=== PATIENT | male | born 1985 | race Caucasian/White ===

== ENCOUNTER 2017-02-25 00:47 | Emergency (ER) | payer OTHER ==
[~2017-02-25] VITALS: Ht 193 cm; Wt 90.7 kg
[2017-02-25 00:47] VITALS: BP_SYST 150
--- NOTE | 2017-02-25 00:47 | NUR ---
Patient to ER bed 1 to gown for evaluation. Side rails up. Report given to Nery AJ.
--- NOTE | 2017-02-25 00:50 | NUR ---
Patient BIB [facility] ambulance, patient is a patient of Davon Low. Received report from Antony [id number] patient was brought in for increased confusion and increased agitation after the patient drank half gallon of vodka. Patient also complains of lower back pain and left leg/foot pain x 2 days. Patient states pain 9/10. Patient currently compliant with plan of care. Davon Low councelor at bedside. No acute distress noted at this time.
--- NOTE | 2017-02-25 01:10 | NUR ---
# 18 gauge angiocath placed to LAC. Use of asceptic technique. Opsite placed over site. Blood return noted. Blood for lab drawn from site. Flushed with 10 cc of normal saline. No evidence of infiltration noted. Patient tolerated well.
--- NOTE | 2017-02-25 01:38 | NUR ---
ER MD Yin at bedside examining patient.
[2017-02-25 02:02] LABS: BASOPHILS % (AUTO) 0.2 % (0.0-2.0); EOSINOPHILS # (AUTO) 0.1 K/uL (0.0-0.4); EOSINOPHILS % (AUTO) 2.3 % (0.0-4.0); HEMATOCRIT 33.2 % (36-54); HEMOGLOBIN 10.5 g/dL (14.0-18.0); LYMPHOCYTES # (AUTO) 1.3 K/uL (1.0-5.5); LYMPHOCYTES % (AUTO) 24.7 % (20.5-51.5); MEAN CORPUSCULAR HEMOGLOBIN 25 pg (27-31); MEAN CORPUSCULAR HGB CONC 32 % (32-36); MEAN CORPUSCULAR VOLUME 80 fL (79.0-98.0); MONOCYTES # (AUTO) 0.8 K/uL (0.0-1.0); MONOCYTES % (AUTO) 14.2 % (1.7-9.3); NEUTROPHILS # (AUTO) 3.2 K/uL (1.8-7.7); NEUTROPHILS % (AUTO) 58.6 % (40.0-70.0); RED BLOOD CELL COUNT(AUTO) 4.14 MIL/uL (4.2-6.2); WHITE BLOOD COUNT (AUTO) 5.4 K/uL (4.8-10.8)
[2017-02-25 02:07] LABS: ANION GAP 9 (5-15); CALCIUM 10.2 mg/dL (8.4-11.0); CHLORIDE 101 mmol/L (98-107); CREATININE 0.91 mg/dL (0.55-1.30); GLUCOSE 80 mg/dL (70-99); POTASSIUM 4.4 mmol/L (3.5-5.1); SODIUM SERUM 135 mmol/L (136-145); UREA NITROGEN, BLOOD 10 mg/dL (8-21)
[2017-02-25 02:08] LABS: GFR AFRICAN AMERICAN 124 mL/min (>90)
[2017-02-25 02:09] LABS: PROTHROMBIN TIME 10.4 SECS (9.5-12.5)
[2017-02-25] MEDS ORDERED: NACL 0.9% 1,000 ML IV ONE (02:09)
[2017-02-25 02:11] LABS: ALANINE AMINOTRANSFERASE 109 U/L (12-78); ALBUMIN 3.9 g/dL (3.4-4.8); ASPARTATE AMINOTRANSFERASE 122 U/L (10-37); TOTAL BILIRUBIN 0.6 mg/dL (0.0-1.0)
[2017-02-25] MEDS ORDERED: ONDANSETRON HCL 4 MG/2 ML VIAL IVP ONE (02:15)
[2017-02-25 02:16] LABS: PLATELET COUNT (AUTO) 96 K/uL (130-430)
[2017-02-25 02:18] LABS: ALCOHOL, BLOOD < 3 mg/dL (<10)
--- NOTE | 2017-02-25 02:20 | NUR ---
Davon doniscelbeth at bedside. Patient reoriented to surroundings. No agitation noted at this time. Patient continues to be cooperative with plan of care.
[2017-02-25 02:36] LABS: BILIRUBIN,URINE NEGATIVE (NEGATIVE); BLOOD, URINE NEGATIVE (NEGATIVE); CLARITY/URINE CLEAR (CLEAR); COLOR,URINE YELLOW (YELLOW); GLUCOSE,URINE NEGATIVE (NEGATIVE); KETONES,URINE TRACE (NEGATIVE); LEUKOCYTE ESTERASE ,URINE NEGATIVE (NEGATIVE); NITRITE, URINE NEGATIVE (NEGATIVE); PH,URINE 7.5 (5.0-8.0); PROTEIN URINE TRACE (NEGATIVE)
[2017-02-25 02:44] LABS: BACTERIA,URINE FEW /HPF (None Seen); MUCUS,URINE 1+ /LPF (None Seen); RBC,URINE 0-3 /HPF (0-3)
[2017-02-25] MEDS ORDERED: MAG-AL HYDROX/SIMETH 30 ML UDC PO ONE (02:45)
[2017-02-25 02:48] LABS: BARBITURATE, URINE NEGATIVE (NEG <=200); METHAMPHETAMINES SCREEN,URINE NEGATIVE (NEG <=500); URINE AMPHETAMINE NEGATIVE (NEG <=500); URINE METHADONE NEGATIVE (NEG <=200)
[2017-02-25 02:49] LABS: BENZODIAZEPINE, URINE POSITIVE (NEG <=150); CANNABINOID, URINE NEGATIVE (NEG <=50); COCAINE, URINE NEGATIVE (NEG <=150); OPIATE, URINE NEGATIVE (NEG <=100); PHENCYCLIDINE SCREEN,URINE NEGATIVE (NEG <=25); UR TRICYCLIC ANTIDEPRESSANTS NEGATIVE (NEG <=300); URINE OXYCODONE SCREEN NEGATIVE (NEG <=100); URINE PROPOXYPHENE SCREEN NEGATIVE (NEG <=300)
--- NOTE | 2017-02-25 03:08 | NUR ---
IVF infusing with no s/s of infiltration at this time. Will cont to monitor.
--- NOTE | 2017-02-25 03:10 | NUR ---
No adverse reactions noted after medication administration. Will continue to monitor.
[2017-02-25] MEDS ORDERED: LORazepam 2 MG/ML VIAL (FOR ER USE) IVP ONE (03:15)
[2017-02-25] MEDS ORDERED: KETOROLAC TROMETHAMINE 30 MG VIAL IVP ONE (03:30)
--- NOTE | 2017-02-25 03:30 | NUR ---
Spoke with Christina AJ at [facility] and gave report.
[2017-02-25 04:07] VITALS: BP_SYST 142
--- NOTE | 2017-02-25 04:07 | NUR ---
Patient to be transfered to [facility] for continuity of care. Report called to Christina at receiving facility. [facility] ambulance service has been called for transfer. ETA is 15 minutes.
== END 2017-02-25 04:07 | disposition home or self-care (01) ==
LOC: SED 00:47
DX: F10.239 Alcohol dependence with withdrawal, unspecified (principal); R41.82 Altered mental status, unspecified; I10 Essential (primary) hypertension; Z88.6 Allergy status to analgesic agent; Y90.0 Blood alcohol level of less than 20 mg/100 ml
CPT/HCPCS: 36415; 80053; 80307; 81000; 82140; 85025; 85610; 96361; 96374; 96375; 99284; G0482; J1885; J2060; J2405; J7030

== ENCOUNTER 2017-10-20 23:08 | Inpatient (IN) | payer OTHER ==
[~2017-10-20] VITALS: Ht 193 cm; Wt 90.7 kg
[~2017-10-20 23:08] MED LIST: LORA-259 PO; METO-442 PO; PANT20TA2 PO; TRAM50TA92 PO
[2017-10-20 23:18] VITALS: BP_SYST 121
[2017-10-21] MEDS ORDERED: FOLIC ACID 1 MG, THIAMINE HCL 100 MG, MAGNESIUM SULFATE 1 GM, MVI 10 ML in NACL 0.9% 1,... IV ONE (01:00)
[2017-10-21] MEDS ORDERED: FOLIC ACID 5 MG/ML VIAL IV ONE (01:01)
[2017-10-21] MEDS ORDERED: THIAMINE HCL 100 MG/ML VIAL ONE (01:01)
[2017-10-21] MEDS ORDERED: MVI 10 ML VIAL IV ONE (01:01)
[2017-10-21] MEDS ORDERED: MAGNESIUM SULFATE 1 GM/2 ML VIAL ONE (01:01)
[2017-10-21 01:42] LABS: CREATININE 1.02 mg/dL (0.55-1.30); POTASSIUM 3.9 mmol/L (3.5-5.1)
[2017-10-21 01:43] LABS: BASOPHILS % (AUTO) 0.1 % (0.0-2.0); EOSINOPHILS % (AUTO) 0.1 % (0.0-4.0); HEMATOCRIT 43.8 % (36-54); HEMOGLOBIN 14.3 g/dL (14.0-18.0); LYMPHOCYTES # (AUTO) 1.6 K/uL (1.0-5.5); LYMPHOCYTES % (AUTO) 21.3 % (20.5-51.5); MEAN CORPUSCULAR HEMOGLOBIN 26 pg (27-31); MEAN CORPUSCULAR HGB CONC 33 % (32-36); MEAN CORPUSCULAR VOLUME 80 fL (79.0-98.0); MONOCYTES # (AUTO) 0.4 K/uL (0.0-1.0); MONOCYTES % (AUTO) 5.1 % (1.7-9.3); NEUTROPHILS # (AUTO) 5.7 K/uL (1.8-7.7); NEUTROPHILS % (AUTO) 73.4 % (40.0-70.0); PLATELET COUNT (AUTO) 190 K/uL (130-430); RED BLOOD CELL COUNT(AUTO) 5.45 MIL/uL (4.2-6.2); RED CELL DISTRIBUTION WIDTH 24.5 % (9.0-15.0); WHITE BLOOD COUNT (AUTO) 7.7 K/uL (4.8-10.8)
[2017-10-21 01:45] LABS: PROTHROMBIN TIME 10.3 SECS (9.5-12.5)
[2017-10-21 01:48] LABS: ALBUMIN 4.1 g/dL (3.4-4.8); TOTAL BILIRUBIN 0.7 mg/dL (0.0-1.0)
[2017-10-21] MEDS ORDERED: ONDANSETRON HCL 4 MG/2 ML VIAL IVP ONE (04:15)
[2017-10-21] MEDS ORDERED: KETOROLAC TROMETHAMINE 15 MG VIAL IVP ONE (05:00)
[2017-10-21] MEDS ORDERED: PROCHLORPERAZINE EDISYLATE 10 MG/2 ML VIAL IVP ONE (05:15)
[2017-10-21] MEDS ORDERED: DIPHENHYDRAMINE INJ 50 MG/ML VIAL IVP ONE (05:15)
[2017-10-21 05:54] VITALS: BP_SYST 125
[2017-10-21 07:58] VITALS: BP_SYST 125
[2017-10-21] MEDS: FOLIC ACID 1 MG, THIAMINE HCL 100 MG, MAGNESIUM SULFATE 1 GM, MVI 10 ML in NACL 0.9% 1,... IV SCH ×3 (10:36→23:41)
[2017-10-21 12:52] VITALS: BP_SYST 124
[2017-10-21] MEDS ORDERED: MORPHINE 4 MG/ML INJ. SYRINGE ONE (13:20)
[2017-10-21] MEDS: MORPHINE 4 MG/ML INJ. SYRINGE IVP PRN ×3 (13:20→21:33)
[2017-10-21] MEDS: ONDANSETRON HCL 4 MG/2 ML VIAL IVP PRN ×2 (13:20→20:35)
[2017-10-21] MEDS ORDERED: ONDANSETRON HCL 4 MG/2 ML VIAL ONE (13:21)
[2017-10-21] MEDS: LORazepam 2 MG/ML VIAL IVP PRN ×3 (13:43→23:40)
[2017-10-21 16:00] VITALS: BP_SYST 85
[2017-10-21 19:55] VITALS: BP_SYST 136
[2017-10-22 01:01] VITALS: BP_SYST 125
[2017-10-22] MEDS: MORPHINE 4 MG/ML INJ. SYRINGE IVP PRN ×6 (01:30→22:05)
[2017-10-22] MEDS: ONDANSETRON HCL 4 MG/2 ML VIAL IVP PRN ×3 (02:37→18:25)
[2017-10-22] MEDS: LORazepam 2 MG/ML VIAL IVP PRN ×5 (03:36→20:07)
[2017-10-22 05:36] VITALS: BP_SYST 139
[2017-10-22 07:07] LABS: BASOPHILS % (AUTO) 0.1 % (0.0-2.0); EOSINOPHILS % (AUTO) 0.5 % (0.0-4.0); HEMATOCRIT 32.7 % (36-54); HEMOGLOBIN 10.7 g/dL (14.0-18.0); LYMPHOCYTES # (AUTO) 1.1 K/uL (1.0-5.5); MEAN CORPUSCULAR HEMOGLOBIN 27 pg (27-31); MEAN CORPUSCULAR HGB CONC 33 % (32-36); MEAN CORPUSCULAR VOLUME 82 fL (79.0-98.0); MONOCYTES # (AUTO) 0.5 K/uL (0.0-1.0); MONOCYTES % (AUTO) 7.3 % (1.7-9.3); NEUTROPHILS # (AUTO) 5.2 K/uL (1.8-7.7); NEUTROPHILS % (AUTO) 76.1 % (40.0-70.0); RED BLOOD CELL COUNT(AUTO) 3.97 MIL/uL (4.2-6.2); RED CELL DISTRIBUTION WIDTH 23.8 % (9.0-15.0); WHITE BLOOD COUNT (AUTO) 6.9 K/uL (4.8-10.8)
[2017-10-22 07:09] LABS: PLATELET COUNT (AUTO) 99 K/uL (130-430)
[2017-10-22 07:12] LABS: CALCIUM 8.9 mg/dL (8.4-11.0); CREATININE 0.89 mg/dL (0.55-1.30)
[2017-10-22 07:20] LABS: ALBUMIN 3.4 g/dL (3.4-4.8); TOTAL BILIRUBIN 1.5 mg/dL (0.0-1.0)
[2017-10-22 08:01] VITALS: BP_SYST 131
[2017-10-22 12:10] VITALS: BP_SYST 145
[2017-10-22 15:58] VITALS: BP_SYST 152
[2017-10-22] MEDS ORDERED: MORPHINE SULFATE 30 MG Immediate Release TABLET PO PRN (17:00)
[2017-10-22 20:00] VITALS: BP_SYST 140
[2017-10-22] MEDS: FOLIC ACID 1 MG, THIAMINE HCL 100 MG, MAGNESIUM SULFATE 1 GM, MVI 10 ML in NACL 0.9% 1,... IV SCH (20:22)
[2017-10-23] MEDS: LORazepam 2 MG/ML VIAL IVP PRN ×5 (00:04→16:54)
[2017-10-23 00:42] VITALS: BP_SYST 139
[2017-10-23] MEDS: MORPHINE 4 MG/ML INJ. SYRINGE IVP PRN ×3 (02:06→10:22)
[2017-10-23] MEDS: FOLIC ACID 1 MG, THIAMINE HCL 100 MG, MAGNESIUM SULFATE 1 GM, MVI 10 ML in NACL 0.9% 1,... IV SCH ×2 (06:12→16:16)
[2017-10-23] MEDS: ONDANSETRON HCL 4 MG/2 ML VIAL IVP PRN ×2 (07:53→15:54)
[2017-10-23 08:00] VITALS: BP_SYST 146
[2017-10-23 12:10] VITALS: BP_SYST 114
[2017-10-23 14:59] VITALS: BP_SYST 138
[2017-10-23 16:06] VITALS: BP_SYST 141
[2017-10-23 18:31] VITALS: BP_SYST 142
== END 2017-10-23 22:25 | disposition home or self-care (01) | DRG 896 ==
LOC: SED 23:08 → STU 10-21 05:29 → SMU 10-22 17:44
PROVIDERS: ADMIT Internal Medicine; ATTEND Internal Medicine
DX: F10.229 Alcohol dependence with intoxication, unspecified (principal); G92 Toxic encephalopathy; F10.239 Alcohol dependence with withdrawal, unspecified; G89.4 Chronic pain syndrome; M54.9 Dorsalgia, unspecified; F17.220 Nicotine dependence, chewing tobacco, uncomplicated; Y90.8 Blood alcohol level of 240 mg/100 ml or more; F32.9 Major depressive disorder, single episode, unspecified; Z88.6 Allergy status to analgesic agent; Z79.899 Other long term (current) drug therapy
CPT/HCPCS: 36415; 80053; 84484; 85025; 85610-TC; 85730-TC; 93005; 96374; 96375; 99285; G0482; J0780; J1200; J1885; J2060; J2270; J2274; J2405; J3411; J3475; J3490; J7030